=== PATIENT | male | born 1970 | race Caucasian/White ===

== ENCOUNTER 2021-01-17 12:47 | Inpatient (IN) | payer OTHER ==
[~2021-01-17] VITALS: Ht 188 cm; Wt 85.3 kg
[2021-01-17 13:07] VITALS: BP 122/75
--- NOTE | 2021-01-17 14:15 | EKG ---
[place] [address] [facility] [place] [address] ELECTROCARDIOGRAM REPORT Name: ESTEBAN MARTIN [id number] Admission: 01/17/21 Attend Phys: Discharge: Date of : 68 Report #: [id number] [facility] ED Test Date: 2021-01-17 Test Time: 13:28:26 Pat Name: ESTEBAN MARTIN Department: Room: Gender: M Orthodontist: NEYMAR : 1970 Requested By: Pablito Dailey Order Number: [id number] MD: Sam Carrillo Measurements Intervals [place] Rate: 87 P: 35 [place]: 153 QRS: 18 QRSD: 90 T: 25 QT: 353 QTc: 425 Interpretive Statements Sinus rhythm Probable left atrial enlargement Baseline wander in lead(s) V2 No previous ECG available for comparison Electronically Signed On 01-17-2021 14:15:32 CDT by Sam Carrillo [email or web address] <ELECTRONICALLY SIGNED> By: Sam Carrillo MD, [facility] 01/17/21 1415 1328 1328 Sam Carrillo MD, FACC /EPI
[2021-01-17 14:31] LABS: ABSOLUTE NEUTROPHILS 2.8 thou/uL (1.4-8.2); BASOPHILS 0.2 % (0.0-2.0); EOSINOPHILS 0.1 % (0.0-3.0); HEMATOCRIT 41.8 % (42.0-52.0); HEMOGLOBIN 14.9 gm/dL (14.0-18.0); LYMPHOCYTES 12.1 % (24.0-44.0); MCH 32.2 pg (26.0-34.0); MCHC 35.6 g/dL (28.0-37.0); MCV 90.3 fL (80.0-100.0); MONOCYTES 11.7 % (1.0-8.0); PLATELET COUNT 154 thou/uL (150-400); POLYS 75.9 % (36.0-66.0); RBC 4.63 mil/uL (4.50-6.00); RDW 13.1 % (10.5-14.5); WBC 3.6 thou/uL (4.0-11.0)
[2021-01-17 14:37] LABS: ANION GAP 6 mmol/L (7-16); BUN 9 mg/dL (7-18); CALCIUM 7.9 mg/dL (8.5-10.1); CHLORIDE 93 mmol/L (98-107); CO2 30 mmol/L (21-32); CREATININE 0.9 mg/dL (0.7-1.3); GLUCOSE 119 mg/dL (74-106); POTASSIUM 3.8 mmol/L (3.5-5.1); SODIUM 129 mmol/L (136-145)
[2021-01-17 14:45] LABS: TROPONIN-I <0.06 ng/mL (<0.06)
[2021-01-17 17:28] VITALS: BP 124/75
[2021-01-17 18:18] LABS: ALBUMIN 3.1 g/dL (3.4-5.0); DIRECT BILIRUBIN 0.2 mg/dL (<0.1-0.2); TOTAL BILIRUBIN 0.6 mg/dL (0.2-1.0); TOTAL PROTEIN 6.5 g/dL (6.4-8.2)
[2021-01-17 18:25] VITALS: BP 124/85
[2021-01-17 19:20] VITALS: BP 122/91
[2021-01-18 03:16] LABS: HEMOGLOBIN 14.9 gm/dL (14.0-18.0); MCH 32.4 pg (26.0-34.0); MCHC 35.5 g/dL (28.0-37.0); MCV 91.3 fL (80.0-100.0); PLATELET COUNT 188 thou/uL (150-400); RDW 13.1 % (10.5-14.5)
[2021-01-18 03:22] VITALS: BP 113/75
[2021-01-18 03:34] LABS: WBC 1.6 thou/uL (4.0-11.0)
[2021-01-18 03:52] LABS: ALBUMIN 2.8 g/dL (3.4-5.0); ANION GAP 5 mmol/L (7-16); BUN 11 mg/dL (7-18); CHLORIDE 99 mmol/L (98-107); CO2 29 mmol/L (21-32); DIRECT BILIRUBIN < 0.1 mg/dL (<0.1-0.2); GLUCOSE 195 mg/dL (74-106); MAGNESIUM 2.7 mg/dL (1.8-2.4); PHOSPHORUS 1.7 mg/dL (2.5-4.9); SGOT 169 U/L (15-37); SGPT 244 U/L (30-65); SODIUM 133 mmol/L (136-145); TOTAL BILIRUBIN 0.3 mg/dL (0.2-1.0); TOTAL PROTEIN 6.5 g/dL (6.4-8.2)
[2021-01-18 03:53] LABS: POTASSIUM 5.1 mmol/L (3.5-5.1)
[2021-01-18 06:52] LABS: ABSOLUTE NEUTROPHILS 0.9 thou/uL (1.4-8.2); LARGE PLATELETS FEW; PLATELET ESTIMATE NORMAL
[2021-01-18 07:35] VITALS: BP 128/79
--- NOTE | 2021-01-18 07:40 | NUR ---
ADMISSION COMPLETED WITH CAREPLAN STARTED, INTERVENTIONS ADDED AND PT ORIENTATED TO ROOM. UP AD JAMES, PILLS WHOLE, SR ON MONITOR AND POC WITH IVF. PT VSS OVERNIGHT. DRY COUGH HEARD. ISOLATION PRECAUTIONS IN PLACE.
--- NOTE | 2021-01-18 07:46 | HC ---
[facility] [place] [address] CONSULTATION Name: ESTEBAN MARTIN Room #: 355-P ADM IN M.R.#: [id number] Admission: 01/17/21 Attend Phys: Charlie Gonzalez MD Discharge: Date of : 68 Report #: [id number] THIS REPORT FOR: cc: FAM - Family physician unknown FAM - Family physician unknown Ari Moseley MD ~ DATE OF SERVICE: 01/17/2021 INFECTIOUS DISEASE CONSULTATION ATTENDING PHYSICIAN: Dr. Gonzalez. REASON FOR EVALUATION: COVID-19 infection, complicated by pneumonitis and respiratory failure. HISTORY OF PRESENT ILLNESS: Chart reviewed and the patient examined. This is a 50 year old without significant medical history who presented to the hospital with progressive dyspnea, was noted at home to have low saturations. He had been ill for roughly 10 days, had onset of fevers and had those throughout the extent of it, had some cough, mild anorexia, generalized myalgias. No arthralgias. He was ultimately tested on 01/08, found to be COVID positive. He had taken a recent trip to [place]. Chest x-ray did show peripheral interstitial opacities. CBC showed borderline leukopenia, was hyponatremic with a sodium of 129. He was initiated on therapy with azithromycin, remdesivir, corticosteroids and vitamins. ALLERGIES: None known. CURRENT MEDICATIONS: Include ascorbic acid, zinc, cholecalciferol, thiamine, pantoprazole, methylprednisolone, enoxaparin, guaifenesin, remdesivir, azithromycin. PAST MEDICAL HISTORY: Otherwise, unremarkable. SOCIAL HISTORY: Regular ethanol, chews tobacco. No illicit drug use. FAMILY HISTORY: Noncontributory. REVIEW OF SYSTEMS: Otherwise, unremarkable. PHYSICAL EXAMINATION: GENERAL: Appears vyaj-ji-dlkuwwko distress. He is lucid, reasonably well nourished. VITAL SIGNS: Temperature 98.1, pulse 76, respirations 19, blood pressure 124/75. HEENT: Normocephalic. Extraocular muscles intact. [facility] [address] [place] [address] CONSULTATION Name: ESTEBAN MARTIN Room #: 355-P [facility] IN .R.#: [id number] Admission: 01/17/21 Attend Phys: Charlie Gonzalez MD Discharge: Date of : 68 Report #: [id number] NECK: Supple. LUNGS: Bilateral scattered coarse breath sounds. HEART: Regular, borderline tachycardic. I do not appreciate a murmur. ABDOMEN: Soft, nontender, nondistended. EXTREMITIES: No cyanosis. GENITOURINARY AND RECTAL: Deferred. LABORATORY AND X-RAY DATA: As described above. CTA of the chest: Extensive bilateral interstitial ground-glass opacities. D-dimer 0.62. BNP of 53. Electrolytes: Sodium 129, potassium 3.8, chloride 93, bicarbonate is 30, anion gap of 6. BUN and creatinine 9 and 0.9. White count of 3.6, H and H 14.9 and 41.8, platelets of 154. Confirmed coronavirus testing was positive. ASSESSMENT AND PLAN: COVID-19 infection, complicated by pneumonitis and respiratory failure. He is moderately ill. We will continue combination therapy, again directed to the coronavirus. We will add Actemra in addition to ivermectin to his regimen. Continue antibacterials, just include ceftriaxone, discontinue the azithromycin. We will do additional diagnostic testing to further assess including liver function tests, inflammatory markers, urinary antigens, MRSA surveillance. <ELECTRONICALLY SIGNED> By: Ari Moseley MD 01/18/21 0746 1614 0045 Ari Moseley MD /nt
[2021-01-18 11:56] VITALS: BP 126/83
--- NOTE | 2021-01-18 14:16 | NUR ---
INITIAL ASSESSMENT: Received consult. SW reviewed chart and spoke with nursing and attending physician. Pt was admitted from home due to COVID. Pt placed in Enhanced Isolation due to COVID. Pt had first positive COVID test on 01/08. Pt has not received a COVID vaccine. Pt is afebrile and on 5L of O2. Pt is on IV abx, IV steroids and has started Remdesivir. No weekend discharge planned. SW spoke with pt via phone. Introduced role of SW. Pt is alert/orientated x4. Pt reports he lives at home alone. Prior to admission, pt was independent with ADLs. No use of DME. No hx of HH or post-acute placement. Pt's PCP is Dr. Giancarlo Turpin. Pt requests to be called on his cell phone: [phone]. Pt does not have health insurance. [facility] to screen pt for [place]-Medicaid application. Plan is for pt to discharge home when medically stable. SW is following to assist as needed with discharge planning.
--- NOTE | 2021-01-18 19:39 | NUR ---
RN ASSUMED PT'S CARE AT 0700-1900PM, PT IS A&OX4, PT IS ON O2 5L/MIN/NC, PT HAS SOB WITH ACTIVITIES, PT'S VS ARE STABLE, PT STILL HAS COUGHING, PT IS CONTINUING TO TREAT COVID MEDICATIONS, PT DEINES PAIN AND N/V AT DAY SHIFT.
[2021-01-18 19:45] VITALS: BP 120/75
[2021-01-19 02:06] LABS: HAV IgM AB (ANTI-HAV IgM) Negative (Negative); HEPATITIS B SURFACE AG Negative (Negative); HEPATITIS C VIRUS AB <0.1 (0.0-0.9)
[2021-01-19 04:00] VITALS: BP 122/77
[2021-01-19 04:30] LABS: CALCIUM 7.7 mg/dL (8.5-10.1); CREATININE 0.8 mg/dL (0.7-1.3); DIRECT BILIRUBIN 0.1 mg/dL (<0.1-0.2); PHOSPHORUS 2.7 mg/dL (2.5-4.9); POTASSIUM 3.9 mmol/L (3.5-5.1); TOTAL BILIRUBIN 0.3 mg/dL (0.2-1.0); TOTAL PROTEIN 6.4 g/dL (6.4-8.2)
--- NOTE | 2021-01-19 04:38 | NUR ---
Pt. stated he didn't sleep much last night. O2 at L/NC , encouraged use of IS. Cont. on enhanced precaution , afebrile. Up ad maxi in room with steady gait.
[2021-01-19 07:46] VITALS: BP 121/71
[2021-01-19 09:06] LABS: ABSOLUTE NEUTROPHILS 5.9 thou/uL (1.4-8.2); BASOPHILS 0.3 % (0.0-2.0); HEMOGLOBIN 14.2 gm/dL (14.0-18.0); LYMPHOCYTES 7.7 % (24.0-44.0); MCH 32.1 pg (26.0-34.0); MCHC 34.6 g/dL (28.0-37.0); MCV 92.9 fL (80.0-100.0); MONOCYTES 13.6 % (1.0-8.0); PLATELET COUNT 249 thou/uL (150-400); POLYS 78.4 % (36.0-66.0); RBC 4.42 mil/uL (4.50-6.00); RDW 13.1 % (10.5-14.5)
[2021-01-19 09:29] LABS: WBC 7.5 thou/uL (4.0-11.0)
[2021-01-19 11:16] VITALS: BP 135/82
[2021-01-19 15:24] VITALS: BP 121/76
[2021-01-19 20:35] VITALS: BP 116/86
[2021-01-20 02:30] VITALS: BP 136/87
--- NOTE | 2021-01-20 03:24 | NUR ---
Pt. slept some. O2 at 6L/NC with O2 sat in the mid to upper 90's. Cont. on enhanced precaution , afebrile.
[2021-01-20 05:00] LABS: ALBUMIN 2.9 g/dL (3.4-5.0); ANION GAP 5 mmol/L (7-16); BUN 11 mg/dL (7-18); CALCIUM 7.7 mg/dL (8.5-10.1); CHLORIDE 104 mmol/L (98-107); CO2 31 mmol/L (21-32); CREATININE 0.8 mg/dL (0.7-1.3); DIRECT BILIRUBIN < 0.1 mg/dL (<0.1-0.2); GLUCOSE 117 mg/dL (74-106); PHOSPHORUS 3.5 mg/dL (2.6-4.7); POTASSIUM 3.7 mmol/L (3.5-5.1); SGOT 83 U/L (15-37); SGPT 174 U/L (16-63); SODIUM 140 mmol/L (136-145); TOTAL BILIRUBIN 0.4 mg/dL (0.2-1.0); TOTAL PROTEIN 5.9 g/dL (6.4-8.2)
[2021-01-20 08:05] VITALS: BP 119/71
[2021-01-20 11:18] VITALS: BP 118/77
[2021-01-20 16:10] VITALS: BP 132/83
[2021-01-20 19:31] VITALS: BP 144/90
--- NOTE | 2021-01-20 22:11 | NUR ---
PT RESTING IN BED. NOT SOA WITH TALKING. PT STATED HE PLANS ON TAKING A SHOWER, WITH CHAIR AND O2 INTACT. LUNGS DIMINISHED.
[2021-01-21 04:54] VITALS: BP 110/86
[2021-01-21 05:27] LABS: ALBUMIN 2.7 g/dL (3.4-5.0); CALCIUM 7.9 mg/dL (8.5-10.1); CREATININE 0.8 mg/dL (0.7-1.3); DIRECT BILIRUBIN 0.2 mg/dL (<0.1-0.2); PHOSPHORUS 3.9 mg/dL (2.5-4.9); POTASSIUM 3.9 mmol/L (3.5-5.1); TOTAL BILIRUBIN 0.4 mg/dL (0.2-1.0); TOTAL PROTEIN 5.5 g/dL (6.4-8.2)
[2021-01-21 07:17] VITALS: BP 115/67
[2021-01-21 11:24] VITALS: BP 127/80
--- NOTE | 2021-01-21 14:00 | NUR ---
APPLE reviewed chart and spoke with nursing and attending physician. Pt remains in Enhanced Isolation due to COVID. Pt is afebrile and on 4L of O2. Pt is on IV abx and IV steroids. Pt to complete course of Remdesivir today. Discharge home anticipated in 2-3 days. SW spoke with pt via phone to provide update and discuss discharge plan. Pt is aware and in agreement with plan. SW discussed possible need for home O2. Pt does not have health insurance. SW discussed process of arranging home O2 if needed. Pt is agreeable. Confirmed pt's home address and phone number. APPLE faxed referral to [facility] and notified [facility] liaison. Pt to have meds filled in [facility]. APPLE is following to assist as needed with discharge planning.
[2021-01-21 15:39] VITALS: BP 114/72
[2021-01-21 19:43] VITALS: BP 118/66
[2021-01-22 02:31] VITALS: BP 117/75
--- NOTE | 2021-01-22 06:25 | NUR ---
LAST DOSE OF REMDESIVIR GIVEN PER POC. DC ANTICIPATED TODAY, WITH PT RETURNING HOME WITH 02. VSS OVERNIGHT, AND 02 SATURATION AT 94%. PT HAS NO COMPLAINTS. ISOLATION PRECAUTIONS IN PLACE.
[2021-01-22 07:20] VITALS: BP 122/87
[2021-01-22 11:03] VITALS: BP 120/79
--- NOTE | 2021-01-22 13:56 | NUR ---
APPLE reviewed chart and spoke with nursing and attending physician. Pt remains in Enhanced Isolation due to COVID. Pt is afebrile and on 4L of O2. Pt is on IV abx and IV steroids. Discharge home is anticipated in 1-2 days. Will need rest/exercise oximetry ordered to determine home O2 needs. Katie is following for home O2. APPLE is following to assist as needed with discharge planning.
[2021-01-22 15:10] VITALS: BP 110/88
--- NOTE | 2021-01-22 16:54 | NUR ---
PT RESTED IN BED THIS SHIFT AND REMAINS ON OXYGEN VIA NC. PT TAKIN IN GOOD PO AND COMPLETED IV ABXS TODAY. WILL CONTINUE TO ASSESS.
[2021-01-22 19:25] VITALS: BP 110/68
[2021-01-23 04:57] VITALS: BP 91/52
--- NOTE | 2021-01-23 06:07 | NUR ---
PT UP WALKING ROOM IN THE EARLY EVENING. 02 STILL AT 4L. TELE SHOWS SR. POSSIBLE DC TODAY. VSS. PT HAD NO COMPLAINTS OVERNIGHT.
[2021-01-23 07:27] VITALS: BP 96/54
[2021-01-23 11:14] VITALS: BP 112/65
[2021-01-23] MEDS ORDERED: PROTONIX40 M2 PO (13:07)
[2021-01-23] MEDS ORDERED: ASA81BEC PO (13:07)
[2021-01-23] MEDS ORDERED: ZINC SULFATE50 MG PO (13:07)
[2021-01-23] MEDS ORDERED: VITAMIN D3125 MC1 PO (13:07)
[2021-01-23] MEDS ORDERED: DEXAMETHASONE 44 M1 PO (13:07)
[2021-01-23] MEDS ORDERED: ACEROLA C500 MG PO (13:07)
[2021-01-23] MEDS ORDERED: CEFDINIR300 MG PO (13:07)
[2021-01-23 13:16] VITALS: BP 112/65
--- NOTE | 2021-01-23 13:27 | NUR ---
DISCHARGE NOTE: APPLE reviewed chart and spoke with nursing and attending physician. Pt remains in Enhanced Isolation due to COVID. Pt is afebrile and on room air. Rest/exercise oximetry completed earlier today. Pt does not qualify for home O2. O2 sats remained above 90% at rest and with activity. SW spoke with pt via phone to discuss discharge plan. Pt states he will have transportation home when discharged. Pt's new prescriptions sent to [facility] to be filled. APPLE faxed face sheet and spoke with Sandra in the outpatient pharmacy. Sandra requesting attending physician to contact the pharmacy to clarify one prescription. SW notified attending physician. Outpatient pharmacy to contact 3[facility] nurses station when pt's meds are ready to be picked up. Pharmacy to call SW with total cost of meds. No additional SW needs identified at this time, but is available to assist should needs arise.
--- NOTE | 2021-01-23 15:25 | NUR ---
PT ALERT AND ORIENTED TIMES FOUR. VSS. PT DENIES PAIN/SOA. PT TOLERATES MEDS AND MEALS. PT UP AB JAMES IN THE ROOM WIH STEADY GAIT. PLANS FOR DISCHARGE TODAY. WILL CONTINUE TO [place].
== END 2021-01-23 15:21 | disposition home or self-care (01) | DRG 871 ==
LOC: ER 12:47 → EROBS 16:09 → 3W 18:26
PROVIDERS: Emergency Medicine; Nurse Practitioner; Specialist; ADMIT Hospitalist; ATTEND Hospitalist
DX: A41.9 Sepsis, unspecified organism (principal); U07.1 COVID-19; J96.01 Acute respiratory failure with hypoxia; J96.02 Acute respiratory failure with hypercapnia; J12.82 Pneumonia due to coronavirus disease 2019; E87.1 Hypo-osmolality and hyponatremia; R65.20 Severe sepsis without septic shock; F17.220 Nicotine dependence, chewing tobacco, uncomplicated; E86.0 Dehydration; R74.01 Elevation of levels of liver transaminase levels; Z79.82 Long term (current) use of aspirin; Z79.899 Other long term (current) drug therapy
CPT/HCPCS: 10879